=== PATIENT | female | born 1950 | race Caucasian/White ===

== ENCOUNTER → 2023-05-29 07:54 | Outpatient (REF) | payer MEDICARE, OTHER, SELFPAY | LOC: RCS 07:54 | PROVIDERS: ATTENDING PHYSICIAN Internal Medicine | DX: R07.89 Other chest pain (principal) | CPT/HCPCS: 93017 ==

== ENCOUNTER → 2024-02-02 12:40 | Outpatient (REF) | payer MEDICARE, OTHER, SELFPAY | LOC: WDC 12:40 | PROVIDERS: ATTENDING PHYSICIAN Family Medicine | DX: Z12.31 Encounter for screening mammogram for malignant neoplasm of breast (principal) | CPT/HCPCS: 77063; 77067 ==

== ENCOUNTER → 2024-09-03 16:17 | Outpatient (REF) | payer MEDICARE, OTHER, SELFPAY | LOC: RCS 16:17 | PROVIDERS: ATTENDING PHYSICIAN Nurse Practitioner Family | DX: J98.8 Other specified respiratory disorders (principal); R07.89 Other chest pain | CPT/HCPCS: 71046; 93005 ==

== ENCOUNTER → 2024-12-09 09:14 | Outpatient (REF) | payer MEDICARE, OTHER, SELFPAY | LOC: HWRAD 09:14 | PROVIDERS: ATTENDING PHYSICIAN Orthopaedic Surgery Hand Surgery; FAMILY PHYSICIAN Family Medicine | DX: M25.512 Pain in left shoulder (principal) | CPT/HCPCS: 73200 ==

== ENCOUNTER → 2024-12-20 07:55 | Outpatient (REF) | payer MEDICARE, OTHER, SELFPAY | LOC: REG 07:55 | PROVIDERS: ATTENDING PHYSICIAN Family Medicine | DX: M79.605 Pain in left leg (principal); I83.893 Varicose veins of bilateral lower extremities with other complications; Z12.31 Encounter for screening mammogram for malignant neoplasm of breast | CPT/HCPCS: 93922; 93970 ==

== ENCOUNTER 2025-02-01 05:46 | Day surgery (SDC) | payer MEDICARE, OTHER, SELFPAY ==
--- NOTE | 2025-01-11 12:46 | CM ---
Demographics: CONFIRMED
Living situation:lives alone
Support Person Post Operatively: Friend Leisa will stay with her.
History of
VN: No
SNF: no
Outpatient: None, pending surgical clearance
Has patient purchased required equipment: sling
PCP: Emani
Pharmacy: [facility]
Post Operative Discharge Plan: Home with friend,
[2025-01-19 14:04] VITALS: BMI 26.9
[2025-01-19 14:28] LABS: Hematocrit 37.5 % (37.0-47.0); Hemoglobin 12.6 g/dL (12.0-16.0); Mean Corp Hgb Conc. 33.6 g/dL (33.0-37.0); Mean Corpuscular Volume 94.7 fL (81.0-99.0); Platelet Count 258 10^3/uL (130-400); Red Cell Dist. Width 11.2 % (11.5-14.5)
[2025-01-19 15:01] VITALS: BMI 26.9
[2025-01-19 15:21] LABS: ALT (SGPT) 22 U/L (0-35); AST (SGOT) 24 U/L (14-36); Albumin 4.1 g/dl (3.5-5.0); Alkaline Phosphatase 66 U/L (38-126); Blood Urea Nitrogen 19 mg/dl (7-17); Calcium 9.5 mg/dl (8.4-10.2); Carbon Dioxide 31 mmol/L (22-30); Chloride 99 mmol/L (98-107); Estimated Creatinine Clearance 73 ml/min; Glucose 109 mg/dl (70-99); Potassium 4.2 mmol/L (3.5-5.1); Sodium 134 mmol/L (135-145); Total Protein 6.9 g/dl (6.3-8.2); eGFR > 60.00
[2025-01-20 08:39] LABS: Glycohemoglobin (HgbA1c) 5.3 % (4.0-5.9)
[2025-02-01] VITALS (7 sets, daily range): BP systolic 109–130; BP diastolic 61–79
[2025-02-01] MEDS: TYLENOL 1000 MG PO (06:16)
[2025-02-01] MEDS: CELEBREX 200 MG PO (06:16)
[2025-02-01] MEDS: NORMOSOL-R/PLASMALYTE-A 1000 IV (06:36)
== END 2025-02-01 11:41 | disposition home or self-care (01) ==
LOC: SDS 05:46
PROVIDERS: ATTENDING PHYSICIAN Orthopaedic Surgery Hand Surgery; FAMILY PHYSICIAN Family Medicine
DX: M19.012 Primary osteoarthritis, left shoulder (principal)
CPT/HCPCS: 23472; C1776; 73020; 80053; 83036; 85027; 87070; 93005; C1713